=== PATIENT | female | born 1995 | race Caucasian/White ===

== ENCOUNTER 2019-03-15 09:31 | Emergency (ER) | payer OTHER, SELFPAY ==
[2019-03-15] MEDS ORDERED: METOCLOPRAMIDE 10 MG/2mL INJ ONE (10:48)
[2019-03-15] MEDS ORDERED: DIPHENHYDRAMINE 50 MG/ML VIAL ONE (10:48)
[2019-03-15 11:27] LABS: Urine Blood NEGATIVE (NEG); Urine Glucose NEGATIVE (NEG); Urine Protein NEGATIVE (NEG)
--- NOTE | 2019-03-15 11:34 | RAD REPORT ---
EXAM DESCRIPTION: CT - Head Brain Wo Cont - 03/15/2019 11:12 am CLINICAL HISTORY: Headache COMPARISON: None. TECHNIQUE: Computed axial tomography of the head was obtained. IV contrast was not requested. All CT scans are performed using dose optimization technique as appropriate and may include automated exposure control or mA/KV adjustment according to patient size. FINDINGS: An intracranial bleed is not seen . The ventricles are normal in caliber. No extra-axial fluid collection is noted. Fluid within the sinuses/ mastoids is not seen. IMPRESSION: No acute intracranial abnormality is seen. If patient's symptoms persist MRI of the bra in would be recommended.
[2019-03-15] MEDS ORDERED: KETOROLAC 30 MG/ML INJ ONE (12:01)
--- NOTE | 2019-03-15 12:26 | ER ---
Nurse's Notes [facility] Name: Coleen Valentine Age: 23 yrs Sex: Female : 1995 Arrival Date: 03/15/2019 Time: 09:33 Bed 14 Private MD: Diagnosis: Headache Presentation: 03/15 09:55 Presenting complaint: Patient states: She has been having a pounding, throbbing, aj1 headache for the past 3 days, reports feeling pressure behind her eyes, sensitivity to light, nausea. Reports that she has never had a headache like this in the past, denies hitting her head. Patient appears anxious, tearful, states that she has been under a lot of stress at home and work. 09:55 Transition of care: patient was not received from another setting of care. Onset of aj1 symptoms was February 2019. Risk Assessment: Do you want to hurt yourself or someone else? Patient reports no desire to harm self or others. Initial Sepsis Screen: Does the patient meet any 2 criteria? No. Patient's initial sepsis screen is negative. Does the patient have a suspected source of infection? No. Patient's initial sepsis screen is negative. Care prior to arrival: None. 09:55 Method Of Arrival: Ambulatory aj1 10:39 Acuity: CYNDI 3 iw Triage Assessment: 09:55 Headache History: Denies prior headaches. General: Appears uncomfortable, Behavior is aj1 anxious. Pain: Complains of pain in forehead, base of the skull and neck Pain does not radiate. Pain currently is 10 out of 10 on a pain scale. Pain began 3 days ago Also complains of decreased appetite, nausea, photophobia, inability to work. Neuro: Level of Consciousness is awake, alert, obeys commands. 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 - Social history:: Smoking status: Patient/guardian denies using tobacco. - Ebola Screening: : Patient denies travel to an Ebola-affected area in the 21 days before illness onset. Screenin:55 Abuse screen: Denies threats or abuse. Denies injuries from another. Nutritional aj1 screening: No deficits noted. Tuberculosis screening: No symptoms or risk factors identified. 13:09 Fall Risk None identified. aj1 Assessment: 09:55 General: Appears uncomfortable, Behavior is anxious, tearful. Pain: Complains of pain aj1 in neck and base of the skull and forehead Pain does not radiate. Pain currently is 10 out of 10 on a pain scale. Quality of pain is described as pressure, throbbing, pounding Pain began 3 days ago Is continuous, Also complains of decreased appetite, nausea, photophobia, inability to work. Neuro: Level of Consciousness is awake, alert, obeys commands, Oriented to person, place, time, situation, Moves all extremities. Full function Gait is steady, Speech is normal, Facial symmetry appears normal, Reports headache photophobia. Cardiovascular: Patient's skin is warm and dry. Respiratory: Airway is patent Respiratory effort is even, unlabored, Respiratory pattern is regular, symmetrical. GI: No signs and/or symptoms were reported involving the gastrointestinal system. : No signs and/or symptoms were reported regarding the genitourinary system. EENT: No signs and/or symptoms were reported regarding the EENT system. Derm: No signs and/or symptoms reported regarding the dermatologic system. Skin is pink, warm \T\ dry. normal. Musculoskeletal: No signs and/or symptoms reported regarding the musculoskeletal system. Circulation, motion, and sensation intact. 11:31 Reassessment: Patient appears in no apparent distress at this time. No changes from aj1 previously documented assessment. Patient and/or family updated on plan of care and expected duration. Pain level reassessed. Patient is alert, oriented x 3, equal unlabored respirations, skin warm/dry/pink. Patient states that she is still having a headache, despite previous administration of Reglan and Benadryl. Notified Dr. Ríos. 12:30 Reassessment: Patient appears in no apparent distress at this time. No changes from aj1 previously documented assessment. Patient and/or family updated on plan of care and expected duration. Pain level reassessed. Patient is alert, oriented x 3, equal unlabored respirations, skin warm/dry/pink. Vital Signs: 09:55 BP 125 / 75; Pulse 111; Resp 18; Temp 99.3(TE); Pulse Ox 98% on R/A; aj1 11:33 BP 108 / 58; Pulse 63; Resp 16; Pulse Ox 100% on R/A; aj1 12:30 BP 101 / 61; Pulse 72; Resp 16; Pulse Ox 100% on R/A; aj1 ED Course: 09:33 Patient arrived in ED. as 09:55 No provider procedures requiring assistance completed. aj1 09:55 Arm band placed on. aj1 09:55 Patient has correct armband on for positive identification. Bed in low position. Call aj1 light in reach. Side rails up X 1. 09:58 Fox Ríos MD is Attending Physician. gs 10:16 Inserted saline lock: 20 gauge in right forearm, using aseptic technique. Blood em1 collected. 10:30 Nery Brown RN is Primary Nurse. aj1 10:39 Triage completed. iw 11:26 CT Head Brain wo Cont In Process Unspecified. EDMS 12:24 Vitaliy Garcia MD is Referral Physician. gs 13:08 IV discontinued, intact, bleeding controlled, No redness/swelling at site. Pressure aj1 dressing applied. Administered Medications: 10:39 Drug: Reglan 5 mg Route: IVP; Site: right antecubital; aj1 11:48 Follow up: Response: No adverse reaction aj1 10:39 Drug: Benadryl 25 mg Route: IVP; Site: right antecubital; aj1 11:48 Follow up: Response: No adverse reaction aj1 11:48 Drug: TORadol - Ketorolac 15 mg Route: IVP; Site: right forearm; aj1 13:07 Follow up: Response: No adverse reaction; Pain is decreased aj1 Outcome: 12:24 Discharge ordered by . gs 13:09 Discharged to home ambulatory. aj1 13:09 Condition: good 13:09 Discharge instructions given to patient, Instructed on discharge instructions, follow up and referral plans. medication usage, Demonstrated understanding of instructions, follow-up care, medications, Prescriptions given X 1. 13:09 Patient left the ED. aj1 Signatures: Dispatcher [employer] EDMS Nery Brown RN RN aj1 Marycarmen Banks Irene, RN RN Chapin Banks em1 Fox Ríos MD MD Corrections: (The following items were deleted from the chart) 11:33 11:31 Reassessment: Patient appears in no apparent distress at this time. No changes aj1 from previously documented assessment. Patient and/or family updated on plan of care and expected duration. Pain level reassessed. Patient is alert, oriented x 3, equal unlabored respirations, skin warm/dry/pink. aj1
--- NOTE | 2019-03-15 12:26 | EDPHYS ---
Physician Documentation [facility] Name: Coleen Valentine Age: 23 yrs Sex: Female : 1995 Arrival Date: 03/15/2019 Time: 09:33 Bed 14 Private MD: ED Physician Fox Ríos HPI: 03/15 12:19 This 23 yrs old Female presents to ER via Ambulatory with complaints of gs Headache. 12:19 The patient complains of pain to the forehead. The patient describes the headache as gs pounding, throbbing. Onset: The symptoms/episode began/occurred gradually, 2 day(s) ago. Associated signs and symptoms: Pertinent positives: nausea. Severity of symptoms: At its worst the pain was severe, in the emergency department the pain has improved, mildly. Headache History: The patient has had previous headaches and this one is similar to previous episodes, and this one is more severe than previous episodes. The symptoms are alleviated by nothing. the symptoms are aggravated by nothing. The patient has experienced similar episodes in the past, a few times. 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 - Social history:: Smoking status: Patient/guardian denies using tobacco. - Ebola Screening: : Patient denies travel to an Ebola-affected area in the 21 days before illness onset. ROS: 12:19 All other systems are negative. gs Exam: 12:19 Head/Face: Normocephalic, atraumatic. Eyes: Pupils equal round and reactive to light, gs extra-ocular motions intact. Lids and lashes normal. Conjunctiva and sclera are non-icteric and not injected. Cornea within normal limits. Periorbital areas with no swelling, redness, or edema. ENT: Nares patent. No nasal discharge, no septal abnormalities noted. Tympanic membranes are normal and external auditory canals are clear. Oropharynx with no redness, swelling, or masses, exudates, or evidence of obstruction, uvula midline. Mucous membranes moist. Neck: Trachea midline, no thyromegaly or masses palpated, and no cervical lymphadenopathy. Supple, full range of motion without nuchal rigidity, or vertebral point tenderness. No Meningismus. Chest/axilla: Normal chest wall appearance and motion. Nontender with no deformity. No lesions are appreciated. Cardiovascular: Regular rate and rhythm with a normal S1 and S2. No gallops, murmurs, or rubs. Normal PMI, no JVD. No pulse deficits. Respiratory: Lungs have equal breath sounds bilaterally, clear to auscultation and percussion. No rales, rhonchi or wheezes noted. No increased work of breathing, no retractions or nasal flaring. Abdomen/GI: Soft, non-tender, with normal bowel sounds. No distension or tympany. No guarding or rebound. No evidence of tenderness throughout. Back: No spinal tenderness. No costovertebral tenderness. Full range of motion. Skin: Warm, dry with normal turgor. Normal color with no rashes, no lesions, and no evidence of cellulitis. MS/ Extremity: Pulses equal, no cyanosis. Neurovascular intact. Full, normal range of motion. 12:19 Constitutional: The patient appears alert, awake. 12:19 Neuro: Orientation: to person, place, time \T\ situation. Cranial nerves: CN II- XII are normal as tested, Cerebellar function: is grossly normal, Motor: strength is 5/5 in all extremities, Sensation: no obvious gross deficits. Vital Signs: 09:55 BP 125 / 75; Pulse 111; Resp 18; Temp 99.3(TE); Pulse Ox 98% on R/A; aj1 11:33 BP 108 / 58; Pulse 63; Resp 16; Pulse Ox 100% on R/A; aj1 12:30 BP 101 / 61; Pulse 72; Resp 16; Pulse Ox 100% on R/A; aj1 MDM: 10:06 Patient medically screened. 12:19 Differential diagnosis: migraine, tension headache, vasomotor headache. Data reviewed: vital signs, nurses notes. Counseling: I had a detailed discussion with the patient and/or guardian regarding: the historical points, exam findings, and any diagnostic results supporting the discharge/admit diagnosis, the need for outpatient follow up. Response to treatment: the patient's symptoms have resolved after treatment, the patient's pain is gone. ED course: pt requested ct as pain was more persistent that previous even though she was informed good prognosis when onset is same with previous. 03/15 10:34 Order name: Urine Dipstick--Ancillary (enter results); Complete Time: 11:31 eb 03/15 10:34 Order name: Urine --Ancillary (enter results); Complete Time: 11:31 eb 03/15 10:07 Order name: CT Head Brain wo Cont; Complete Time: 12:35 gs 03/15 10:23 Order name: Urine Test (obtain specimen); Complete Time: 10:39 iw Administered Medications: 10:39 Drug: Reglan 5 mg Route: IVP; Site: right antecubital; aj1 11:48 Follow up: Response: No adverse reaction aj1 10:39 Drug: Benadryl 25 mg Route: IVP; Site: right antecubital; aj1 11:48 Follow up: Response: No adverse reaction aj1 11:48 Drug: TORadol - Ketorolac 15 mg Route: IVP; Site: right forearm; aj1 13:07 Follow up: Response: No adverse reaction; Pain is decreased aj1 Disposition: 03/15/19 12:24 Discharged to Home. Impression: Headache. - Condition is Stable. - Discharge Instructions: General Headache Without Cause, Migraine Headache. - Prescriptions for Fiorinal 50- 325-40 mg Oral Capsule - take 1 capsule by ORAL route every 6 hours As needed - not to exceed 6 capsules per day; 12 capsule. - Work release form, Medication Reconciliation Form, Thank You Letter, Antibiotic Education, Prescription Opioid Use form. - Follow up: Vitaliy Garcia MD; When: 2 - 3 days; Reason: Re-evaluation by your physician. Signatures: Dispatcher [employer] EDND Nery Brown RN RN aj1 Azalea Meade RN RN iw Fox Ríos MD MD gs Corrections: (The following items were deleted from the chart) 13:09 12:24 03/15/2019 12:24 Discharged to Home. Impression: Headache. Condition is Stable. aj1 Forms are Medication Reconciliation Form, Thank You Letter, Antibiotic Education, Prescription Opioid Use. Follow up: Vitaliy Garcia; When: 2 - 3 days; Reason: Re-evaluation by your physician. gs
[2019-03-15 13:26] VITALS: TEMP 99.3
[2019-03-15 13:27] VITALS: O2SAT 100
[2019-03-15 13:29] VITALS: BP 101/61
== END 2019-03-15 13:09 | disposition home or self-care (01) ==
LOC: ER 09:31
DX: R51 Headache (principal)
CPT/HCPCS: 70450; 81003; 81025; 99284; J2765

== ENCOUNTER 2021-12-26 11:11 | Emergency (ER) | payer BC, OTHER ==
--- OUTSIDE RECORDS SUMMARY | 2021-12-26 11:15 | XMS REPORT | Continuity of Care Document ---
:1995 Author Organization [facility] t Address [address] [place] [address] Care Team Providers Name Role Phone Angela PICKETT Primary Care Physician Unavailable Babs JIANG Attending Clinician Unavailable KRIS Attending Clinician Unavailable Angela PICKETT Attending Clinician Unavailable TASIA Attending Clinician Unavailable Angela Cancino Attending Clinician Payers Payer Name Policy Type Policy Number Effective Date Expiration Date S assumption [facility] [id number] 2019 00:00:00 OUT OF STATE Problems Condition Condition Condition Status Onset Resolution Last Treating Co mments Source Name Details Category Date Date Treatment Clinician Date Chlamydia Chlamydia Disease Active Overview: Univers infection infection 3-14 Formattin i ty of during during 00:00: g of this [place] 00 note [facility] might be Branch different from the original. pending mariposa Rh Rh Disease Active Overview: Univer s negative negative 3-14 Formattin ity of state in state in 00:00: g of this [place] as antepartum antepartum 00 note Me dical period period might be Branch different from the original. Address 28 weeks prn Supervisio Supervisio Disease Active U nivers n of n of 3-10 ity of high[place]risk [place] [address] [facility] Branch Multiparit Multiparit Disease Active U nivers y y 3-10 ity of 00:00: [place] 00 Medical Branch History of History of Disease Active U nivers miscarriag miscarriag 3-10 it y of e e 00:00: [place] 00 Medical Branch Depression Depression Disease Active Overview : Univers during during 3- Formattin ity of 00:00: g of this [place] ex note Medical might be Branch different from the original. She is currently taking Wellbutri n and prozac Obesity in Obesity in Disease Active U nivers 12-19 ity of 00:00: [place] [facility] Branch Von Von Disease Active Overview: Univer s Willebrand Willebrand 12-19 Formattin ity of disease disease 00:00: g of this note Medical might be Branch different from the original. Per. [place] note on 06/01/15 :Given the patient history and the results of the coagulati on studies it is unlikely that she has vVD. Although unlikely, falsely elevated levels of clotting factor could be related to . To avoid complicat ions, Factor VIII, vWF Ag, and vWF ristoceti n cofactor activity should be tested again in the 3rd trimester closer to delivery, and within the first 2 weeks after delivery. Levels of Factor VIII and ristoceti n cofactor activity > 50 IU/ml are to be considere d safe.-EPI C reviewed- unable to locate any repeat clotting factor levels in 3rd trimester or post deliver Frequent Frequent Problem Active [facility] Migraines Migraines Problem [facility] Acute Acute Problem Active [facility] - reaction reaction [facility] Anxiety Anxiety Problem [facility] Other Other Problem Active [facility] - disorders disorders Jae rodrigo complicati complicati l ng the ng the [facility] puerperium puerperium en t Clinics Problem Active [facility] - depression depression Me moria in in l remission remission Outp ati ent Clinics Allergies, Adverse Reactions, Alerts Allergy Allergy Status Severity Reaction(s) Onset Inactive Treating Comm ents Source Name Type Date Date Clinician NO KNOWN Drug Active Univers ALLERGIE Class ity of S [facility] Social History Social Habit Start Date Stop Date Quantity Comments Source ASSERTION 2021-11-12 [facility] 00:00:00 [facility] Exposure to Not sure [facility] SARS-CoV-2 (event) Medica l Branch Alcohol intake 2021-11-25 2021-11-25 0 /d [facility] 00:00:00 00:00:00 Medical Branch Tobacco use and 2015-03-19 2015-03-19 Never used [facility] exposure 00:00:00 00:00:00 Medical Branch Sex Ass[birth year] [facility] 00:00:00 00:00:00 Medical Branch Smoking Status Start Date Stop Date Source Never smoker [facility] Branch Medications Ordered Filled Start Stop Current Ordering Indication Dosage Frequency Signature Comments Components Source Medication Medication Date Date Medication? Clinician (SIG) Name Name Yes Take by Unive rs vit 3-10 mouth. ity of no.124/iron 09:24: [place] /folic 34 Medical ( Branch VITAMIN ORAL) Yes Take by Unive rs vit 3-10 mouth. ity of no.124/iron 09:24: [place] /folic 34 Medical ( Branch VITAMIN ORAL) Yes [id number] 1{tbl} Take 1 U nivers multivitami 3-10 tablet by ity of n ( 00:00: mouth [place] VITAMIN) 00 daily. Medical tablet Branch Yes [id number] 1{tbl} Take 1 U nivers multivitami 3-10 tablet by ity of n ( 00:00: mouth [place] VITAMIN) 00 daily. Medical tablet Branch codeine-gua 2020-09 Yes 5mL Take 5 mL U nivers ifenesin 1-03 by mouth ity of 10-100 mg/5 00:00: every 6 [place] as mL oral 00 (six) Medical solution hours as Branch needed for Cough. Indication s: cough codeine-gua 2020-09 Yes 5mL Take 5 mL U nivers ifenesin 1-03 by mouth ity of 10-100 mg/5 00:00: every 6 [place] as mL oral 00 (six) Medical solution hours as Branch needed for Cough. Indication s: cough bromphenira Yes [id number] 5mL Take 5 mL Univers mine-pseudo 08 by mouth 4 it y of ephedrine-D 00:00: (four[place] (BROMFED 00 times Medical DM) 2-30-10 daily as Bran ch mg/5 mL needed for syrup Congestion /Allergies . azelastine Yes [id number] 1{spray Use 1 Univers 137 mcg 9-08 } [place] in ity of (0.1 %) 00:00: each [place] nasal spray 00 nostril 2 Med ical (two) Branch times daily. Use in each nostril as directed fluticasone Yes [id number] 1{spray Use 1 Univers propionate 9-08 } [place] in ity o f 50 00:00: each [place] mcg/actuati 00 nostril Medic al on nasal daily. Branch spray bromphenira Yes [id number] 5mL Take 5 mL Univers mine-pseudo 9-08 by mouth 4 it y of ephedrine-D 00:00: (four[place] (BROMFED 00 times Medical DM) 2-30-10 daily as Bran ch mg/5 mL needed for syrup Congestion /Allergies . azelastine Yes [id number] 1{spray Use 1 Univers 137 mcg 9-08 } [place] in ity of (0.1 %) 00:00: each [place] nasal spray 00 nostril 2 Med ical (two) Branch times daily. Use in each nostril as directed fluticasone Yes [id number] 1{spray Use 1 Univers propionate 9-08 } [place] in ity o f 50 00:00: each [place] mcg/actuati 00 nostril Medic al on nasal daily. Branch spray fluoxetine Yes Take by Uni vers HCl (PROZAC 8-16 mouth. ity of ORAL) 09:50: [address] fluoxetine Yes Take by Uni vers HCl (PROZAC 8-16 mouth. ity of ORAL) 09:50: [address] buPROPion Yes Univers XL 300 mg 6-05 ity of 24 hr 00:00: [place] tablet [facility] buPROPion Yes Univers XL 300 mg 6-05 ity of 24 hr 00:00: [place] tablet [facility] Paroxetine Paroxetine Yes Kristyn [address] HCl HCl 7-15 [place] in the [facility] - 00:00: morning Memoria 00 l Outpat[facility] ent Clinics Topwestminsterx Topamax Yes Kristyn [address] 7-15 [place] in evening Luke s - 00:00: for Memoria 00 headaches l Outpati ent Clinics Naproxen Naproxen 2018- 2019- No Kristyn [address] 7-15 11-12 [place] as needed Luke s - 00:00: 00:00 for Memoria 00 :00 headaches; l take with Outpati food or ent milk as Clinics needed Fioricet Fioricet Yes Kristyn [address] [place] as needed [facility] Immunizations Ordered Filled Immunization Date Status Comments [facility] e Immunization Name Name SARS-COV-2 COVID-19 2021-03-03 Completed Unive rsity of MODERNA VACCINE 00:00:00 [facility] SARS-COV-2 COVID-19 2021-03-03 Completed Unive rsity of MODERNA VACCINE 00:00:00 [facility] SARS-COV-2 COVID-19 2021-02-11 Completed Unive rsity of MODERNA VACCINE 00:00:00 [facility] SARS-COV-2 COVID-19 2021-02-11 Completed Unive rsity of MODERNA VACCINE 00:00:00 [facility] Rho (d) Immune 2018-10-20 Completed University of Globulin 00:00:00 [facility] Rho (d) Immune 2018-10-20 Completed University of Globulin 00:00:00 [facility] TDAP 2018-08-13 Completed University of 00:00:00 [facility] TDAP 2018-08-13 Completed University of 00:00:00 [facility] Rho (d) Immune 2015-07-17 Completed University of Globulin 00:00:00 [facility] Rho (d) Immune 2015-07-17 Completed University of Globulin 00:00:00 [facility] TDAP 2015-04-27 Completed University of 00:00:00 [facility] TDAP 2015-04-27 Completed University of 00:00:00 [facility] TDAP 2011-09-18 Completed University of 00:00:00 [facility] TDAP 2011-09-18 Completed University of 00:00:00 [facility] DTAP 2006-04-14 Completed University of 00:00:00 [facility] DTAP 2006-04-14 Completed University of 00:00:00 [facility] MMR 1999-03-15 Completed University of 00:00:00 [facility] MMR 1999-03-15 Completed University of 00:00:00 [facility] Polio (IPV/OPV) 1998-05-04 Completed Universit y of 00:00:00 [facility] Branch DTAP 1998-05-04 Completed University of 00:00:00 [facility] Polio (IPV/OPV) 1998-05-04 Completed Universit y of 00:00:00 [facility] Branch DTAP 1998-05-04 Completed University of 00:00:00 [facility] Branch DTAP 1994-11-02 Completed University of 00:00:00 [facility] HIB 4 Dose Schedule 1994-11-02 Completed Unive rsity of 00:00:00 [facility] MMR 1994-11-02 Completed University of 00:00:00 [facility] Branch DTAP 1994-11-02 Completed University of 00:00:00 [facility] HIB 4 Dose Schedule 1994-11-02 Completed Unive rsity of 00:00:00 [facility] MMR 1994-11-02 Completed University of 00:00:00 [facility] DTAP 1994-04-27 Completed University of 00:00:00 [facility] HIB 4 Dose Schedule 1994-04-27 Completed Unive rsity of 00:00:00 [facility] Hep B, Adol or Pedi 1994-04-27 Completed Unive rsity of Dosage 00:00:00 [facility] Polio (IPV/OPV) 1994-04-27 Completed Universit y of 00:00:00 [facility] DTAP 1994-04-27 Completed University of 00:00:00 [facility] HIB 4 Dose Schedule 1994-04-27 Completed Unive rsity of 00:00:00 [facility] Hep B, Adol or Pedi 1994-04-27 Completed Unive rsity of Dosage 00:00:00 [facility] Polio (IPV/OPV) 1994-04-27 Completed Universit y of 00:00:00 [facility] DTAP 1994-03-02 Completed University of 00:00:00 [facility] HIB 4 Dose Schedule 1994-03-02 Completed Unive rsity of 00:00:00 [facility] Polio (IPV/OPV) 1994-03-02 Completed Universit y of 00:00:00 [facility] DTAP 1994-03-02 Completed University of 00:00:00 [facility] HIB 4 Dose Schedule 1994-03-02 Completed Unive rsity of 00:00:00 [facility] Polio (IPV/OPV) 1994-03-02 Completed Universit y of 00:00:00 [facility] DTAP 1993 Completed University of 00:00:00 [facility] HIB 4 Dose Schedule 1993 Completed Unive rsity of 00:00:00 [facility] Polio (IPV/OPV) 1993 Completed Universit y of 00:00:00 [facility] DTAP 1993 Completed University of 00:00:00 [facility] HIB 4 Dose Schedule 1993 Completed Unive rsity of 00:00:00 [facility] Polio (IPV/OPV) 1993 Completed Universit y of 00:00:00 [facility] Hep B, Adol or Pedi 1993 Completed Unive rsity of Dosage 00:00:00 [facility] Hep B, Adol or Pedi 1993 Completed Unive rsity of Dosage 00:00:00 [facility] Hep B, Adol or Pedi 1993 Completed Unive rsity of Dosage 00:00:00 [facility] Hep B, Adol or Pedi 1993 Completed Unive rsity of Dosage 00:00:00 [facility] Procedures This patient has no known procedures. Encounters Start End Encounter Admission Attending Care Care Encounter Source Date/Time Date/Time Type Type Clinicians Facility Department ID 2022-05-13 2022-05-13 Outpatient R APOLINAR [facility] [id number] Univers 10:45:00 10:45:00 JUSTICE noel o f [facility] 2021-12-27 2021-12-27 Outpatient R KRIS [facility] [id number] Univers 08:30:00 08:30:00 JUAN JOSÉ noel [facility] 2021-12-23 2021-12-23 Outpatient R PIYUSH [facility] [id number] Univers 08:00:00 08:00:00 SHELLI noel o f [facility] 2021-12-09 2021-12-09 Emergency [facility] [id number] [place] 00:00:00 00:00:00 [place], [address] 2021-12-09 2021-12-09 Telephone [facility] [id number] [facility] 00:00:00 00:00:00 Shelli C CREW DIRECTOR [id number] ity of REGIONAL [id number] Jose as MATERNAL [id number] [facility] ical & CHILD [address] [place] [address] 2021-11-29 2021-11-29 Telephone [facility] [id number] [facility] 00:00:00 00:00:00 Shelli C CREW DIRECTOR [id number] ity of REGIONAL [id number] Jose as MATERNAL [id number] [facility] ical & CHILD [address] [place] [address] 2019-04-02 2019-04-02 Outpatient Brazeileen Mortensen [id number] 18:39:00 18:39:00 [facility] ent [facility] 2019-04-01 2019-04-01 Outpatient Brazeileen Jonest [id number] 11:00:00 11:00:00 [facility] ent Clinics 2019-03-19 2019-03-19 Outpatient Brazeileen Jonest [id number] 09:00:00 09:00:00 [facility] ent Clinics Results This patient has no known results.
[2021-12-26 12:14] LABS: Urine Blood Negative (Negative); Urine Glucose Negative (Negative); Urine Protein Negative (Negative); Urine Specific Gravity 1.025 (1.005-1.030)
[2021-12-26 12:23] LABS: Urine Specific Gravity/Preg 1.025 (1.005-1.030)
[2021-12-26 13:36] LABS: Absolute Lymphocytes (CBC) 2.4 K/uL (0.7-4.9)
[2021-12-26] MEDS ORDERED: NA CHLORIDE 0.9% 1,000 ML ONE (14:00)
[2021-12-26 14:15] LABS: BUN Blood Urea Nitrogen 13 mg/dL (7-18); Bicarbonate 24 mmol/L (21-32); Glucose Level 93 mg/dL (74-106); HCG, Quantitative 66310 mIU/mL (1-3); Potassium 3.8 mmol/L (3.5-5.1); Sodium Level 137 mmol/L (136-145)
--- NOTE | 2021-12-26 14:23 | RAD REPORT ---
EXAM DESCRIPTION: US - OB Limited - 12/26/2021 2:03 pm CLINICAL HISTORY: ABD CRAMPING, age. COMPARISON: No comparisons FINDINGS: Single IUP identified. The gestational sac measures 5.7 cm. The crown-rump length measures 2.1 cm which is consistent with 8 week 4 day. Normal appearing yolk sac. heart rate measured at 153 beats . minute. The left ova ry is unremarkable with a volume of 6 cc. The right ovary was not visualized. IMPRESSION: Single IUP with positive heart tones measuring 8 week 4 day with ALEJANDRA of 08/03/2022 .
--- NOTE | 2021-12-26 16:33 | EDPHYS ---
Physician Documentation [facility] Name: Coleen Valentine Age: 26 yrs Sex: Female : 1995 Arrival Date: 12/26/2021 Time: 11:15 Bed 4 Private MD: ED Physician Babak Walters HPI: 12/26 12:20 This 26 yrs old Female presents to ER via Ambulatory with complaints of Vaginal jmm Bleeding, + Preg <12wks. 12:20 The patient presents to the emergency department with vaginal bleeding, that is light. jmm The estimated gestational age is 8 weeks. course: care: private OB physician. Previous pregnancies: in previous pregnancies patient has had Associated signs and symptoms: Pertinent positives: vaginal bleeding. The patient has experienced a previous episode. This is a A1 the presents emerged part with complaints of pelvic pain, radiating to the back along with pelvic cramping and bleeding. Patient has had 1 previous miscarriage. Denies fever or dysuria.. Historical: - Allergies: 11:29 No Known Drug Allergies; ll1 - PMHx: 11:29 None; ll1 - PSHx: 11:29 None; ll1 - Immunization history:: Client reports receiving the 1st dose of the Covid vaccine. - Social history:: Smoking status: Patient denies any tobacco usage or history of. ROS: 12:20 Constitutional: Negative for fever, chills, and weight loss, Cardiovascular: Negative jmm for chest pain, palpitations, and edema, Respiratory: Negative for shortness of breath, cough, wheezing, and pleuritic chest pain, Abdomen/GI: Negative for abdominal pain, nausea, vomiting, diarrhea, and constipation. 12:20 : Positive for pelvic pain, vaginal bleeding. 12:20 All other systems are negative. Exam: 12:20 Constitutional: This is a well developed, well nourished patient who is awake, alert, jmm and in no acute distress. Head/Face: atraumatic. Eyes: EOMI, no conjunctival erythema appreciated ENT: Moist Mucus Membranes Neck: Trachea midline, Supple Chest/axilla: Normal chest wall appearance and motion. Cardiovascular: Regular rate and rhythm. No edema appreciated Respiratory: Normal respirations, no respiratory distress appreciated 12:20 Back: Normal ROM Skin: General appearance color normal MS/ Extremity: Moves all extremities, no obvious deformities appreciated, no edema noted to the lower extremities Neuro: Awake and alert Psych: Behavior is normal, Mood is normal, Patient is cooperative and pleasant 12:20 Abdomen/GI: Inspection: abdomen appears normal, Bowel sounds: normal, Palpation: soft, mild abdominal tenderness, in the suprapubic area. Vital Signs: 11:28 BP 122 / 83; Pulse 101; Resp 17; Temp 98.1; Pulse Ox 99% ; Weight 70.31 kg; Height 5 ll1 ft. 1 in. (154.94 cm); Pain 7/10; 14:01 BP 108 / 75; Pulse 74; Resp 16; Pulse Ox 100% ; vg1 15:00 BP 112 / 90; Pulse 90; Resp 15; Pulse Ox 100% ; vg1 11:28 Body Mass Index 29.29 (70.31 kg, 154.94 cm) ll1 MDM: 13:06 Patient medically screened. arlin 16:31 Data reviewed: vital signs, nurses notes. Counseling: I had a detailed discussion with julianna the patient and/or guardian regarding: the historical points, exam findings, and any diagnostic results supporting the discharge/admit diagnosis, lab results, radiology results, the need for outpatient follow up, to return to the emergency department if symptoms worsen or persist or if there are any questions or concerns that arise at home. 12/26 12:14 Order name: Urine Dipstick-Ancillary; Complete Time: 12:55 [facility] 12/26 12:19 Order name: Urine --Ancillary (enter results); Complete Time: 12:55 12/26 12:55 Order name: Abo/rh Typing [facility] 12/26 12:55 Order name: Basic Metabolic Panel; Complete Time: 14:18 [facility] 12/26 12:55 Order name: CBC with Diff; Complete Time: 13:43 [facility] 12/26 12:55 Order name: Quantitative Hcg; Complete Time: 14:18 [facility] 12/26 14:04 Order name: OB Limited; Complete Time: 14:25 [facility] 12/26 15:10 Order name: Rh Typing [facility] 12/26 15:10 Order name: Antibody Screen [facility] 12/26 15:10 Order name: Fetalscreen [facility] 12/26 15:10 Order name: Cord Rh type [facility] 12/26 15:10 Order name: Rhogam [facility] 12/26 12:36 Order name: Urine Dipstick-Ancillary (obtain specimen); Complete Time: 12:36 [facility] 12/26 12:36 Order name: Urine Test (obtain specimen); Complete Time: 12:37 [facility] 12/26 12:55 Order name: IV Saline Lock; Complete Time: 13:47 [facility] 12/26 12:55 Order name: Labs collected and sent; Complete Time: 13:47 [facility] 12/26 12:55 Order name: NPO; Complete Time: 13:37 [facility] 12/26 12:55 Order name: Urine Dipstick-Ancillary (obtain specimen); Complete Time: 13:37 [facility] Administered Medications: 14:00 Drug: NS 0.9% 1000 ml Route: IV; Rate: 1 bolus; Site: right antecubital; vg1 16:56 Follow up: IV Status: Completed infusion; IV Intake: 1000ml vg1 16:53 Drug: RhoGAM (Human) 300 mcg Route: IM; Site: right gluteus; vg1 16:56 Follow up: Response: Medication administered at discharge. vg1 Disposition Summary: 12/26/21 16:32 Discharge Ordered [facility] Condition: Stable [facility] Diagnosis - Threatened [facility]up[facility] - With: Private Physician - When: 1 - 2 days - Reason: Recheck today's complaints, Continuance of care, Re-evaluation by your physician Discharge Instructions: - Discharge Summary Sheet [facility] - Threatened Miscarriage [facility] Forms: - Medication Reconciliation Form [facility] - Thank You Letter [facility] - Antibiotic Education [facility] - Prescription Opioid Use [facility] Prescriptions: - Cephalexin 500 mg Oral Capsule - take 1 capsule by ORAL route every 8 hours for 10 days; 30 capsule; Refills: 0, [facility] Product Selection Permitted Addendum: 12/30/2021 18:36 Co-signature as Attending Physician, Babak Walters MD I agree with the assessment and c pro plan of care. Signatures: Dispatcher [employer] Babak Villa MD MD cha Mickail, Joel, PA PA jmm Garcia, Victoria, RN RN vg1 Hermelinda Redd RN RN ll1 Corrections: (The following items were deleted from the chart) 12/26 14:04 13:07 Transvaginal Ob+US.RAD.BRZ ordered. [facility] EDMS
--- NOTE | 2021-12-26 16:33 | ER ---
Nurse's Notes [facility] Name: Coleen Valentine Age: 26 yrs Sex: Female : 1995 Arrival Date: 12/26/2021 Time: 11:15 Bed 4 Private MD: Diagnosis: Threatened Presentation: 12/26 11:28 Chief complaint: Patient states: Approximately 8 weeks . Started vaginal ll1 bleeding with cramping today. No fever. No N/V/D. Coronavirus screen: Vaccine status: Patient reports receiving the 1st dose of the Covid vaccine. Client denies travel out of the [place] in the last 14 days. At this time, the client does not indicate any symptoms associated with coronavirus-19. Ebola Screen: Patient denies travel to an Ebola-affected area in the 21 days before illness onset. Initial Sepsis Screen: Does the patient meet any 2 criteria? HR > 90 bpm. No. Patient's initial sepsis screen is negative. Does the patient have a suspected source of infection? Yes: Acute abdominal pain. Risk Assessment: Do you want to hurt yourself or someone else? Patient reports no desire to harm self or others. Onset of symptoms was December 26, 2021. 11:28 Method Of Arrival: Ambulatory ll1 11:28 Acuity: CYNDI 3 ll1 Triage Assessment: 11:30 General: Appears in no apparent distress. Behavior is calm, cooperative, appropriate ll1 for age. Pain: Complains of pain in pelvic Quality of pain is described as crampy. GI: Reports lower abdominal pain, cramping. : Reports vaginal bleeding that is bright red, light flow. Historical: - Allergies: 11:29 No Known Drug Allergies; ll1 - PMHx: 11:29 None; ll1 - PSHx: 11:29 None; ll1 - Immunization history:: Client reports receiving the 1st dose of the Covid vaccine. - Social history:: Smoking status: Patient denies any tobacco usage or history of. Screenin:03 Abuse screen: Denies threats or abuse. Nutritional screening: No deficits noted. vg1 Tuberculosis screening: No symptoms or risk factors identified. Fall Risk No fall in past 12 months (0 pts). No secondary diagnosis (0 pts). IV access (20 points). Ambulatory Aid- None/Bed Rest/Nurse Assist (0 pts). Gait- Normal/Bed Rest/Wheelchair (0 pts) Mental Status- Oriented to own ability (0 pts). Total Toth Fall Scale indicates No Risk (0-24 pts). Assessment: 12:10 Reassessment: No changes from previously documented assessment. Patient and/or family ll1 updated on plan of care and expected duration. Pain level reassessed. Patient is alert, oriented x 3, equal unlabored respirations, skin warm/dry/pink. 12:54 Reassessment: No changes from previously documented assessment. Patient and/or family ll1 updated on plan of care and expected duration. Pain level reassessed. Patient is alert, oriented x 3, equal unlabored respirations, skin warm/dry/pink. Gait steady to room. 13:40 General: Appears in no apparent distress. comfortable, Behavior is calm, cooperative. vg1 Pain: Complains of pain in pelvis Pain currently is 7 out of 10 on a pain scale. Quality of pain is described as crampy, Pain began today. Neuro: Level of Consciousness is awake, alert, obeys commands, Oriented to person, place, time, situation. Cardiovascular: Patient's skin is warm and dry. Respiratory: Airway is patent Respiratory effort is even, unlabored. GI: Abdomen is flat, Patient currently denies nausea, vomiting. : Reports vaginal bleeding that is bright red, with clots, light flow, spotty, since this morning stated clots are the size of a pea. EENT: No signs and/or symptoms were reported regarding the EENT system. Derm: Skin is intact, is healthy with good turgor. Musculoskeletal: Circulation, motion, and sensation intact. 14:40 Reassessment: Patient appears in no apparent distress at this time. No changes from vg1 previously documented assessment. Patient and/or family updated on plan of care and expected duration. Pain level reassessed. Patient is alert, oriented x 3, equal unlabored respirations, skin warm/dry/pink. 15:40 Reassessment: Patient appears in no apparent distress at this time. Patient and/or vg1 family updated on plan of care and expected duration. Pain level reassessed. Patient is alert, oriented x 3, equal unlabored respirations, skin warm/dry/pink. Vital Signs: 11:28 BP 122 / 83; Pulse 101; Resp 17; Temp 98.1; Pulse Ox 99% ; Weight 70.31 kg; Height 5 ll1 ft. 1 in. (154.94 cm); Pain 7/10; 14:01 BP 108 / 75; Pulse 74; Resp 16; Pulse Ox 100% ; vg1 15:00 BP 112 / 90; Pulse 90; Resp 15; Pulse Ox 100% ; vg1 11:28 Body Mass Index 29.29 (70.31 kg, 154.94 cm) 1 ED Course: 11:15 Patient arrived in ED. rg4 11:29 Triage completed. ll1 11:30 Arm band placed on. ll1 12:54 Deangelo Cavazos PA is PHCP. jmm 12:54 Babak Walters MD is Attending Physician. m 12:54 Patient placed in an exam room, on a stretcher. ll1 13:37 Maricarmen Zayas, RN is Primary Nurse. vg1 14:03 Patient has correct armband on for positive identification. Bed in low position. Call vg1 light in reach. Side rails up X 1. 14:03 No provider procedures requiring assistance completed. Inserted saline lock: 20 gauge vg1 in right antecubital area, using aseptic technique. ,using aseptic technique. completed by consulting actuary. 14:04 OB Limited In Process Unspecified. EDMS 16:57 IV discontinued, intact, bleeding controlled, No redness/swelling at site. Pressure vg1 dressing applied. Administered Medications: 14:00 Drug: NS 0.9% 1000 ml Route: IV; Rate: 1 bolus; Site: right antecubital; vg1 16:56 Follow up: IV Status: Completed infusion; IV Intake: 1000ml vg1 16:53 Drug: RhoGAM (Human) 300 mcg Route: IM; Site: right gluteus; vg1 16:56 Follow up: Response: Medication administered at discharge. vg1 Intake: 16:56 IV: 1000ml; Total: 1000ml. vg1 Outcome: 16:32 Discharge ordered by . [facility] 16:57 Discharged to home ambulatory. vg1 16:57 Condition: good 16:57 Discharge instructions given to patient, Instructed on discharge instructions, follow up and referral plans. medication usage, Demonstrated understanding of instructions, follow-up care, medications, Prescriptions given X 1. 16:57 Patient left the ED. vg1 Signatures: Dispatcher [employer] EDMS Deangelo Cavazos, PA PA jmm Marquez, Magali rg4 Maricarmen Zayas, RN RN vg1 Hermelinda Redd, RN RN ll1
[2021-12-26 17:21] VITALS: TEMP 98.1
[2021-12-26 17:22] VITALS: O2SAT 100
[2021-12-26 17:23] VITALS: BP 112/90
== END 2021-12-26 16:57 | disposition home or self-care (01) ==
LOC: ER 11:11
DX: O20.0 Threatened abortion (principal); Z3A.08 8 weeks gestation of pregnancy
CPT/HCPCS: 96361; 85025; 80048; 36415; 86900; 86850; 81025; 86901 ×2; 84702; 81003; 76815; 96360; 96372; 99284; J2790; J7030